=== PATIENT | female | born 1990 ===

== ENCOUNTER 2018-07-21 14:04 | Outpatient (CLI) | payer OTHER | END 2018-07-21 14:05 | disposition home or self-care (01) | LOC: C.LAB 14:04 | DX: Z00.00 Encounter for general adult medical examination without abnormal findings (principal); Z13.9 Encounter for screening, unspecified ==

== ENCOUNTER 2018-07-27 09:27 | Outpatient (CLI) | payer OTHER | END 2018-07-27 09:28 | disposition home or self-care (01) | LOC: C.LAB 09:27 | DX: Z00.00 Encounter for general adult medical examination without abnormal findings (principal); Z13.9 Encounter for screening, unspecified ==